=== PATIENT | male | born 1955 | race Caucasian/White ===

== ENCOUNTER 2024-02-08 16:29 | Emergency (ER) | payer BC, SELFPAY ==
[2024-02-08 16:31] VITALS: BP 139/107
--- NOTE | 2024-02-08 17:14 | EDRN ---
Dr. Valdes (Resident MD) in room w/pt at this time.
[2024-02-08 17:17] LABS: COVID-19 Antigen Negative (Negative)
--- NOTE | 2024-02-08 17:21 | EDRN ---
Dr. Valdes informed pt was negative for COVID at this time. Dr. Valdes in room w/ pt at the time.
--- NOTE | 2024-02-08 17:37 | EDRN ---
Pt states he has now lightheadedness, SOB, fatigue, no appetite. Prior to paxlovid had cold sweats and chills w/ sneezing, nasal congestion, and cough2 nights prior to taking paxlovid.
[2024-02-08 17:41] VITALS: BMI 23.2
[2024-02-08 17:45] VITALS: BP 148/92
--- NOTE | 2024-02-08 17:58 | ED.GENMED ---
History of Present Illness
<Janna Valdes DO, Resident - Last Filed: 02/08/24 20:32>
General
Chief Complaint: Cold/Flu/URI Symptoms
Source: patient
Exam Limitations: none
Time Seen by Provider: 02/08/24 17:03
Nursing documentation reviewed up to this point in time: agreed with
History of Present Illness
History of Present Illness:
Mr. Mike Jones is a 68yo male pmh CAD s/p stents, hemochromatosis, pre-diabetes, and anxiety in the ED for SOB and fatigue. tested covid(+) on (02/01), he developed similar sx but did not test positive. She called their PCP's office
on Tuesday (02/02) and an on-call doctor gave them both a paxlovid prescription. Pt reports he has no improvement from paxlovid and developed diarrhea from it. Pt has felt feverish, chills, and worsening fatigue, soreness, lightheadedness. Has felt
SOB for the last day. Loss of appetite x2days, not eating in last 1.5days, reduced fluid intake to about a quart a day. Developed a cough a couple days ago that is productive for a white mucus. No hemoptysis, chest pain, palpitations, N/V, rash, ASHLEY.
Came to the ED as he was concerned over worsening SOB and fatigue, comorbidities, and his PCP retired.
States he felt very dizzy and lightheaded walking from waiting room to his room.
Past History
<Janna Valdes DO, Resident - Last Filed: 02/08/24 20:32>
Past History
ED Past Medical History: CAD, MD (s/p stent), Psychiatric (Anxiety) and Other (Hemochromatosis, kidney stones, pre-diabetes)
ED Past Surgical History: Urological (Percutaneous left nephrostomy stone removal March 2022)
Social History
Tobacco: Former smoker
Alcohol: None
Personal:
Living: with family
Employment: Retired
Family History
Family History: Other (Noncontributory)
Review of Systems
<Janna Valdes DO, Resident - Last Filed: 02/08/24 20:32>
Review of Systems
Allergies reviewed?: Yes
All Other Systems: ROS reviewed and negative except as documented in HPI and ROS
Phy Exam
<Janna Valdes DO, Resident - Last Filed: 02/08/24 20:32>
General Physical Exam
General Presentation: mild distress
General age: appears stated age
General Skin: warm and dry
General Habitus: normal
General Mental: anxious
General Hydration: appears well hydrated
ENT Exam
ENT Exam: EOMI, pharynx normal, neck supple and normocephalic
Cardiovascular Exam
Cardiovascular Exam: no edema, no gallop, no murmur, normal peripheral pulses and bradycardia
Heart Sounds: normal
Pulmonary Exam
Pulmonary Exam: no rales, chest non tender, no rhonchi and no cough
Oxygen Status: room air
Breath Sounds: Wheeze: right upper
Gastrointestinal Exam
Gastrointestinal Exam: normal bowel sounds, non tender, soft, no organomegaly, no pulsatile mass and non distended
Neurological Exam
Neurological Exam: alert and oriented x3
Skin Exam
Skin Exam: normal color, warm/dry and no rash
Psychiatric Exam
Psychiatric Exam: anxious
Course
<Janna Valdes DO, Resident - Last Filed: 02/08/24 20:32>
Orders/Labs/Results
Orders:
Orders
02/08/24 16:43
COVID-19 Antigen Urgent
Source: Nasal Swab
02/08/24 17:52
Electrocardiogram (*1) Urgent
Reason for Study: Shortness of Breath
EKG- Treatment ONCE
02/08/24 17:56
CR Chest - 2 Views Urgent
Comment:
Reason For Exam: SOB, uri sx
02/08/24 18:16
Influenza A+B Rapid Molecular Urgent
LEO Source: Nasal Swab
Specimen Description:
02/08/24 18:24
Complete Blood Count/No Diff Urgent
Comprehensive Metabolic Panel Urgent
02/08/24 18:34
0.9% Sodium Chloride 1000 ml [Nss] 1,000 ml IV BOLUS
Abnormal Lab Results
02/08/24
18:24
WBC 11.9 H 10^3/uL
(4.8-10.8)
Carbon Dioxide 20 L mmol/L
(22-30)
Glucose 108 H mg/dl
(70-99)
Total Bilirubin 2.5 H mg/dl
(0.2-1.3)
02/08/24 18:24
02/08/24 18:24
Vital Signs
Initial and Last Documented VS:
Initial Vital Signs
Temp Pulse Resp BP Pulse Ox
98.2 F 105 18 139/107 96
02/08/24 16:31 02/08/24 16:31 02/08/24 16:31 02/08/24 16:31 02/08/24 16:31
Last Documented Vital Signs
Temp Pulse Resp BP Pulse Ox
98.2 F 70 16 140/84 98
02/08/24 16:31 02/08/24 18:20 02/08/24 18:20 02/08/24 19:32 02/08/24 19:33
<Wiley Landers MD - Last Filed: 02/08/24 20:15>
Orders/Labs/Results
Orders:
Orders
02/08/24 16:43
COVID-19 Antigen Urgent
Source: Nasal Swab
02/08/24 17:52
Electrocardiogram (*1) Urgent
Reason for Study: Shortness of Breath
EKG- Treatment ONCE
02/08/24 17:56
CR Chest - 2 Views Urgent
Comment:
Reason For Exam: SOB, uri sx
02/08/24 18:16
Influenza A+B Rapid Molecular Urgent
LEO Source: Nasal Swab
Specimen Description:
02/08/24 18:24
Complete Blood Count/No Diff Urgent
Comprehensive Metabolic Panel Urgent
02/08/24 18:34
0.9% Sodium Chloride 1000 ml [Nss] 1,000 ml IV BOLUS
Abnormal Lab Results
02/08/24
18:24
WBC 11.9 H 10^3/uL
(4.8-10.8)
Carbon Dioxide 20 L mmol/L
(22-30)
Glucose 108 H mg/dl
(70-99)
Total Bilirubin 2.5 H mg/dl
(0.2-1.3)
02/08/24 18:24
02/08/24 18:24
Vital Signs
Initial and Last Documented VS:
Initial Vital Signs
Temp Pulse Resp BP Pulse Ox
98.2 F 105 18 139/107 96
02/08/24 16:31 02/08/24 16:31 02/08/24 16:31 02/08/24 16:31 02/08/24 16:31
Last Documented Vital Signs
Temp Pulse Resp BP Pulse Ox
98.2 F 70 16 140/84 98
02/08/24 16:31 02/08/24 18:20 02/08/24 18:20 02/08/24 19:32 02/08/24 19:33
<Janna Valdes DO, Resident - Last Filed: 02/08/24 20:32>
MDM/Problems Addressed
Differential Diagnosis Includes:
cardiac ischemia, cardiac arrhythmia, PE, pneumothorax
MDM/Problems Addressed:
Mr. Mike Jones is a 68yo male pmh CAD s/p stents, hemochromatosis, pre-diabetes, and anxiety in the ED for SOB and fatigue.
Cardiac arrhythmia is unlikely at this time as ECG shows sinus bradycardia.
Cardiac ischemia is unlikely at this time as there is no evidence of ST changes on ECG.
PE is unlikely as pt is hemodynamically stable, well-oxygenated, and not in respiratory distress.
Pneumothorax is unlikely as breath sounds are heard throughout the lungs and there is no sign on CXR.
Chronic conditions affecting care: CAD, Psychiatric illness and Other (hemochromatosis)
Acute Exacerbation and/or Progression of Chronic Illness: Psychiatric illness
<Janna Valdes DO, Resident - Last Filed: 02/08/24 20:32>
*Radiology
Radiology exam reviewed: preliminary read by ED provider and radiology read reviewed
*Pulse Oximetry
Patient hypoxic: no
*EKG
Interpreted by ED Provider?: Yes
Interpretation: normal
Comparison EKG: no comparison EKG present
Heart Rate: 55
Rate: bradycardiac
Rhythm: sinus
Interval: normal interval
QRS Pattern: normal QRS
Ischemia: no ischemia
*Critical Care Note
Total Time (30-74mins, 75-104mins- exclusive of procedures): Not Applicable
ED Attending Note
<Janna Valdes DO, Resident - Last Filed: 02/08/24 20:32>
-
Portions of this chart may have been created with voice recognition software.� Occasional wrong word or��sound alike� substitutions may have occurred due to the inherent limitations of voice recognition software.
<Wiley Landers MD - Last Filed: 02/08/24 20:15>
ED Attending Note
Patient seen and examined by attending physician: Yes
I performed a history and physical exam of patient and discussed management with resident, I reviewed resident's note and agree with documented findings and plan of care.: Yes
ED Attending Note:
Patient presents to ED secondary to intermittent dizziness along with shortness of breath over the past 2 days. However, over the past 6 days, patient has been experiencing low-grade fever along with chills and body ache, as well as intermittent
cough. Patient's tested positive for COVID-19 5 days ago. Patient himself tested negative at home shortly afterwards. After speaking with his primary care physician, patient was started empirically on Paxlovid, of which he has taken 4 doses.
With the first 2 doses, however, patient started to experience GI symptoms, i.e. abdominal cramping and diarrhea, which now has improved. Since onset of symptoms, patient states that his low-grade fever and chills sensation have resolved. Patient
has experienced decreased appetite. Denies rash. Denies headache. Denies sore throat. Denies nausea or vomiting. Denies rash.
Physical Exam
General: no apparent distress, not acutely ill. afebrile
Head: nc/at. eomi
Neck: supple. no meningeal signs
Heart: s1/s2 regular rate and rhythm, no murmur. equal radial pulses.
Lungs: no acute respiratory distress. clear bilaterally
Abdomen: normal bowel sounds. not tender.
Neuro: alert and oriented. no focal neurological deficits
Skin: no rash
Psychiatric: well kept. interactive and cooperative
Extremities: no edema. no calf tenderness.
Patient with an unremarkable workup in ED, including blood work, chest x-ray, influenza swab, as well as COVID test. Patient otherwise remains afebrile, helically stable, and nontoxic-appearing. Patient given IV fluids with instructions to
follow-up with his PCP for reevaluation. Patient with likely symptoms secondary to ongoing viral illness.
Discharge Plan
Departure
Patient Disposition: Home (Routine Discharge)
Date of Disposition: 02/08/24
Time of Disposition: 20:24
Patient with high blood pressure during this ER visit?: Yes
Condition: Fair
Covid-19: Negative COVID-19
Discharge Problem:
URI (upper respiratory infection)
Instructions: Viral Upper Respiratory Infection, Adult (DC), Viral Syndrome (DC)
Prescriptions:
No Action
lorazepam 2 mg Tablet
4 mg PO HS PRN (Reason: insomnia)
lorazepam 2 mg Tablet
2 mg PO DAILY
sennosides [senna] 8.6 mg Tablet
8.6 mg PO BID Qty: 20 0RF
oxycodone 5 mg Tablet
5 mg PO Q3HPRN PRN (Reason: moderate pain) Qty: 30 0RF
ketorolac 10 mg tablet
10 mg PO QID Qty: 20 0RF
oxycodone-acetaminophen [Percocet] 5-325 mg Tablet
1 tab PO Q4HPRN PRN (Reason: pain) Qty: 10 0RF
tamsulosin [Flomax] 0.4 mg Capsule
0.4 mg PO DAILY Qty: 10 0RF
ondansetron 4 mg tablet,disintegrating
4 mg PO QID PRN (Reason: nausea and vomiting) Qty: 20 0RF
Referrals:
Bar Ruiz MD [Family Provider] -
Activity Restrictions/Additional Instructions:
Please go home and drink plenty of fluids. Get plenty of rest.
Please finish your paxlovid regimen.
Please return to the emergency department if you experience any new or worsening symptoms. This includes fever, coughing up blood, vomiting blood, passing out.
Interventions
Interventions:
*Risk Screen - Suicide Last Done: 02/08/24 16:31
*General Assessment Last Done: 02/08/24 17:42
*Neglect/Abuse Screening Last Done: 02/08/24 16:31
ED- Fall Risk Assessment Last Done: 02/08/24 17:42
*ED COVID-19 Vaccine History Last Done: 02/08/24 17:42
ED- Pulmonary Assessment Last Done: 02/08/24 17:44
Discharge Date and Time
Print Language: [id number]
[2024-02-08 18:20] VITALS: BP 134/95
[2024-02-08 18:35] LABS: Hematocrit 43.4 % (39.0-52.0); Hemoglobin 15.7 g/dL (13.0-18.0); Mean Corp Hgb Conc. 36.2 g/dL (33.0-37.0); Mean Corpuscular Volume 85.8 fL (80.0-94.0); Mean Platelet Volume 10.1 fL (7.4-10.4); Platelet Count 208 10^3/uL (130-400); Red Blood Cell Count 5.06 10^6/uL (4.70-6.10); Red Cell Dist. Width 12.1 % (11.5-14.5); White Blood Cell Count 11.9 10^3/uL (4.8-10.8)
[2024-02-08 18:53] LABS: ALT (SGPT) 20 U/L (0-50); AST (SGOT) 26 U/L (17-59); Albumin 4.4 g/dl (3.5-5.0); Alkaline Phosphatase 78 U/L (38-126); Blood Urea Nitrogen 13 mg/dl (9-20); Calcium 9.1 mg/dl (8.4-10.2); Carbon Dioxide 20 mmol/L (22-30); Chloride 105 mmol/L (98-107); Estimated Creatinine Clearance 120 ml/min; Glucose 108 mg/dl (70-99); Sodium 142 mmol/L (135-145); Total Bilirubin 2.5 mg/dl (0.2-1.3); Total Protein 6.6 g/dl (6.3-8.2); eGFR > 60.00
[2024-02-08] MEDS: NSS 1000 IV (19:11)
[2024-02-08 19:32] VITALS: BP 140/84
[2024-02-08 20:00] VITALS: BP 140/77
== END 2024-02-08 20:37 | disposition home or self-care (01) ==
LOC: EMR 16:29
PROVIDERS: Emergency Medicine; EMERGENCY PHYSICIAN Emergency Medicine; FAMILY PHYSICIAN Internal Medicine
DX: J06.9 Acute upper respiratory infection, unspecified (principal); R19.7 Diarrhea, unspecified; R42 Dizziness and giddiness; R63.0 Anorexia; Z11.52 Encounter for screening for COVID-19; Z20.822 Contact with and (suspected) exposure to COVID-19; R03.0 Elevated blood-pressure reading, without diagnosis of hypertension; I25.10 Atherosclerotic heart disease of native coronary artery without angina pectoris; E83.119 Hemochromatosis, unspecified; F41.9 Anxiety disorder, unspecified; R73.03 Prediabetes; I25.2 Old myocardial infarction; Z95.5 Presence of coronary angioplasty implant and graft; Z87.442 Personal history of urinary calculi; Z87.891 Personal history of nicotine dependence; R06.02 Shortness of breath
CPT/HCPCS: 99284; 96360; 71046; 80053; 85027; 87502; 87811; 93005